=== PATIENT | female | born 1970 | race Caucasian/White ===

== ENCOUNTER 2019-08-05 17:15 | Emergency (ER) | payer OTHER ==
[~2019-08-05] VITALS: Ht 162.6 cm; Wt 71.0 kg
[~2019-08-05 17:15] MED LIST: NO HOME MEDS
[2019-08-05 17:54] LABS: CLARITY,URINE CLOUDY (Clear); COLOR,URINE YELLOW (Yellow); GLUCOSE, URINE NEGATIVE (Neg); KETONES,URINE NEGATIVE (Neg); LEUKOCYTE ESTERASE ,URINE SMALL (Neg); NITRITES, URINE NEGATIVE (Neg); OCCULT BLOOD,URINE MODERATE (Neg); PROTEIN,URINE TRACE mg/dl (Neg)
[2019-08-05 18:01] LABS: UA COLLECTION TYPE CLN CATCH MIDSTREAM
[2019-08-05 18:03] LABS: BACTERIA,URINE 4+ /HPF (Neg); MUCUS STRANDS NONE SEEN /LPF (Neg); SQUAMOUS EPITHELIAL CELL,UR MODERATE /LPF (FEW); WBC CLUMPS,URINE MODERATE /HPF (NEGATIVE); WBC,URINE 50-100 /HPF (0-4)
[2019-08-05] MEDS ORDERED: ondansetron/PF 4mg/2ml inj IV ONE (18:05)
[2019-08-05] MEDS ORDERED: normal saline 1000ML IV soln IVB ONE (18:05)
[2019-08-05] MEDS ORDERED: morphine 4 MG/ML inj SYRINge IV ONE (18:05)
[2019-08-05 18:45] LABS: URINE HCG NEGATIVE (NEG)
[2019-08-05 18:46] LABS: BASOPHILS # (AUTO) 0.1 X10'3 (0-0.2); BASOPHILS % (AUTO) 0.6 % (0-1); EOSINOPHILS # (AUTO) 0.1 X10'3 (0-0.9); EOSINOPHILS % (AUTO) 0.6 % (0-6); HEMATOCRIT 43.5 % (35.0-45.0); HEMOGLOBIN 14.5 g/dl (12.0-16.0); LYMPHOCYTES # (AUTO) 1.3 X10'3 (1.1-4.8); LYMPHOCYTES % (AUTO) 12.8 % (21-51); MEAN CORPUSCULAR HEMOGLOBIN 32.5 PG (27.0-31.0); MEAN CORPUSCULAR HGB CONC 33.4 g/dL (33.0-36.5); MEAN CORPUSCULAR VOLUME 97.2 FL (78-98); MEAN PLATELET VOLUME 8.2 FL (7.4-10.4); MONOCYTES # (AUTO) 0.6 X10'3 (0-0.9); MONOCYTES % (AUTO) 6.4 % (2-12); NEUTROPHILS # (AUTO) 8.1 X10'3 (1.8-7.7); NEUTROPHILS % (AUTO) 79.6 % (42-75); PLATELET COUNT 217 X10'3 (140-440); RED BLOOD COUNT 4.47 X10'6 (4.20-5.60); RED CELL DISTRIBUTION WIDTH 13.1 % (11.5-14.5); WHITE BLOOD COUNT 10.1 X10'3 (4.5-11.0)
[2019-08-05 19:00] LABS: ALANINE AMINOTRANSFERASE 9 U/L (12-78); ALBUMIN 3.2 G/DL (3.4-5.0); ALBUMIN/GLOBULIN RATIO 0.8 (1.1-1.5); ALKALINE PHOSPHATASE 67 IU/L (46-116); ANION GAP 7 (8-16); ASPARTATE AMINO TRANSFERASE 13 U/L (10-37); BILIRUBIN,TOTAL 0.6 MG/DL (0.1-1.0); BLOOD UREA NITROGEN 10 MG/DL (7-18); BUN/CREATININE RATIO 10.6 (6.6-38.0); CALCIUM 9.2 MG/DL (8.5-10.1); CHLORIDE 103 MMOL/L (99-107); CREATININE 0.94 MG/DL (0.40-0.90); GLUCOSE 95 MG/DL (70-104); LIPASE 154 U/L (73-393); POTASSIUM 3.7 MMOL/L (3.5-5.1); SODIUM 141 MMOL/L (135-145); TOTAL CARBON DIOXIDE 31.4 MMOL/L (24-32); eGFR 64 ML/MIN
[2019-08-05] MEDS ORDERED: BACDS PO (19:20)
[2019-08-05] MEDS ORDERED: ONDA4TAB6 PO (19:20)
[2019-08-05] MEDS ORDERED: HYDR-4383 PO (19:20)
[2019-08-05 19:36] VITALS: BP 131/85
== END 2019-08-05 19:38 | disposition home or self-care (01) ==
LOC: ER 17:17
DX: N39.0 Urinary tract infection, site not specified (principal); N20.0 Calculus of kidney; K80.20 Calculus of gallbladder without cholecystitis without obstruction; Z79.899 Other long term (current) drug therapy
CPT/HCPCS: 36415; 74176; 80053; 81001; 81025; 83690; 85025; 87077; 87088; 87186; 96374; 96375; 99284; J2270; J2405; J7030

== ENCOUNTER 2021-05-02 00:27 | Emergency (ER) | payer OTHER ==
[~2021-05-02] VITALS: Ht 162.6 cm; Wt 72.7 kg
[~2021-05-02 00:27] MED LIST changes: +HYDR-4383 PO; +ONDA4TAB6 PO
--- NOTE | 2021-05-02 00:37 | NUR ---
BLOOD SENT TO LAB
--- NOTE | 2021-05-02 00:44 | NUR ---
PATIENT TO CT
[2021-05-02] MEDS ORDERED: niCARDipine-NS 40mg/200ml IVPB 200 ML IV SCH (00:55)
[2021-05-02] MEDS ORDERED: niCARDipine in NS 40mg/200ml (0.2mg/ml) IVPB IV ONE (01:00)
[2021-05-02 01:06] LABS: BASOPHILS # (AUTO) 0.1 X10'3 (0-0.2); BASOPHILS % (AUTO) 1.2 % (0-1); EOSINOPHILS # (AUTO) 0.2 X10'3 (0-0.9); EOSINOPHILS % (AUTO) 2.4 % (0-6); HEMATOCRIT 41.3 % (35.0-45.0); HEMOGLOBIN 14.2 g/dl (12.0-16.0); LYMPHOCYTES # (AUTO) 2.6 X10'3 (1.1-4.8); LYMPHOCYTES % (AUTO) 33.2 % (21-51); MEAN CORPUSCULAR HEMOGLOBIN 33.3 PG (27.0-31.0); MEAN CORPUSCULAR HGB CONC 34.5 g/dL (33.0-36.5); MEAN CORPUSCULAR VOLUME 96.3 FL (78-98); MEAN PLATELET VOLUME 8.6 FL (7.4-10.4); MONOCYTES # (AUTO) 0.5 X10'3 (0-0.9); MONOCYTES % (AUTO) 6.5 % (2-12); NEUTROPHILS # (AUTO) 4.4 X10'3 (1.8-7.7); NEUTROPHILS % (AUTO) 56.7 % (42-75); PLATELET COUNT 220 X10'3 (140-440); RED BLOOD COUNT 4.28 X10'6 (4.20-5.60); WHITE BLOOD COUNT 7.8 X10'3 (4.5-11.0)
--- NOTE | 2021-05-02 01:13 | NUR ---
2ND IV RIGHT WRIST 18G
[2021-05-02 01:14] LABS: APTT 27 SECONDS (22-32); D-DIMER 0.25 MG/L FEU (0-0.50)
--- NOTE | 2021-05-02 01:15 | NUR ---
PATIENT STATES THAT SHE WAS WAS HAVING SEX WITH HER PARTNER AROUND 12AM WHEN SHE BEGIN FEELING 'WEIRD' SHE STARES IT STARTED WITH THE WEAKNESS IN HER RIGHT ARM THEN SHE NOTICED HER LEGS FELT LIKE "JELLY" PATIENT STATES THAT SHE HAS NO CARDIAC HISTORY OR ANY PMH, SHE ADMITS TO HAVING HTN HOWEVER STATED THAT SHE WAS NOT FORMALLY DIAGNOSED. SHE IS A CURRENT DRUG USER (METH) LAST USED 05/01/2021 12PM INITIALY [facility] SCALE WAS 5. SHE WAS STARTED ON NICARDIPINE AT 5MG/HR. SHE HAS 2 18G IV EKG PERFORMED AND RESULTED DR HUMMEL MADE AWARE SHE IS CURRENTLY ON THE PARTS CLERK. NEXT OF KIN BLAZE (MOTHER) [phone]
[2021-05-02 01:17] LABS: ALANINE AMINOTRANSFERASE 17 U/L (12-78); ALBUMIN 3.6 G/DL (3.4-5.0); ALBUMIN/GLOBULIN RATIO 1.2 (1.1-1.5); ALKALINE PHOSPHATASE 62 IU/L (46-116); ANION GAP 9 (8-16); ASPARTATE AMINO TRANSFERASE 14 U/L (10-37); BILIRUBIN,TOTAL 0.4 MG/DL (0.1-1.0); BLOOD UREA NITROGEN 15 MG/DL (7-18); BUN/CREATININE RATIO 19.2 (6.6-38.0); CALCIUM 8.7 MG/DL (8.5-10.1); CHLORIDE 106 MMOL/L (99-107); CREATININE 0.78 MG/DL (0.40-0.90); GLUCOSE 86 MG/DL (70-104); POTASSIUM 3.3 MMOL/L (3.5-5.1); SODIUM 143 MMOL/L (135-145); TOTAL CARBON DIOXIDE 27.9 MMOL/L (24-32); TOTAL PROTEIN 6.6 G/DL (6.4-8.2); eGFR 78 ML/MIN
[2021-05-02 01:20] LABS: C-REACTIVE PROTEIN < 0.05 MG/DL (0.0-0.5); ETHANOL 0.013 GM/DL (0.0-0.010)
[2021-05-02 02:09] VITALS: BP 132/82
--- NOTE | 2021-05-02 02:18 | NUR ---
[facility] HERE TO TRANSFER PT TO [facility]. [facility] ACCOMPANYING PT IN AMBULANCE.
== END 2021-05-02 02:28 | disposition admitted as inpatient to this hospital (09) ==
LOC: ER 00:27
DX: R26.2 Difficulty in walking, not elsewhere classified (principal); Z20.822 Contact with and (suspected) exposure to COVID-19; I62.9 Nontraumatic intracranial hemorrhage, unspecified; F15.10 Other stimulant abuse, uncomplicated; I16.1 Hypertensive emergency; R20.2 Paresthesia of skin; R20.0 Anesthesia of skin; F17.200 Nicotine dependence, unspecified, uncomplicated; Z72.89 Other problems related to lifestyle; Z79.899 Other long term (current) drug therapy
CPT/HCPCS: 36415; 70450; 71045; 80053; 80320; 82948; 84145; 84484; 85025; 85379; 85610; 85730; 86140; 87635; 93005; 96365; 96366; 99291; 99292; 99406; C9803; J3490

== ENCOUNTER 2022-02-04 14:00 | Emergency (ER) | payer OTHER ==
[~2022-02-04] VITALS: Ht 162.6 cm; Wt 70.5 kg
[2022-02-04 15:02] VITALS: BP 136/85
[2022-02-04] MEDS ORDERED: LIDOcaine 1% W/epiNEPHrine 1:200,000 10ml vial IJ ONE (17:15)
[2022-02-04] MEDS ORDERED: LIDOcaine 1% W/epiNEPHrine 1:100,000 20ml vial IJ ONE (17:20)
[2022-02-04] MEDS ORDERED: SULF1TAB45 PO (17:37)
== END 2022-02-04 17:50 | disposition home or self-care (01) ==
LOC: ER 14:00
DX: L02.91 Cutaneous abscess, unspecified (principal); F15.10 Other stimulant abuse, uncomplicated; Z79.899 Other long term (current) drug therapy
CPT/HCPCS: 10060; 99283; A6266; A6212; A6449

== ENCOUNTER 2022-05-21 09:22 | Emergency (ER) | payer OTHER ==
[~2022-05-21] VITALS: Ht 162.6 cm; Wt 68.4 kg
[2022-05-21 09:25] VITALS: BP 148/90
[2022-05-21] MEDS ORDERED: SULF1TAB49 PO (09:47)
== END 2022-05-21 09:59 | disposition home or self-care (01) ==
LOC: ER 09:23
DX: F15.10 Other stimulant abuse, uncomplicated (principal); L03.011 Cellulitis of right finger; Z79.899 Other long term (current) drug therapy
CPT/HCPCS: 73140; 99283

== ENCOUNTER 2022-07-20 16:15 | Emergency (ER) | payer OTHER ==
[~2022-07-20] VITALS: Ht 162.6 cm; Wt 65.9 kg
[2022-07-20 16:24] VITALS: BP 98/67
[2022-07-20] MEDS ORDERED: LIDOcaine 1% 30ml preserv. free vial IJ ONE (18:10)
[2022-07-20] MEDS ORDERED: bacitracin 15gm ointment TP ONE (18:10)
[2022-07-20] MEDS ORDERED: CEPH-585 PO (18:15)
== END 2022-07-20 18:58 | disposition home or self-care (01) ==
LOC: ER 16:16
DX: S01.81XA Laceration without foreign body of other part of head, initial encounter (principal); F15.20 Other stimulant dependence, uncomplicated; W22.8XXA Striking against or struck by other objects, initial encounter; Y93.89 Activity, other specified; Y92.89 Other specified places as the place of occurrence of the external cause; Y99.8 Other external cause status
CPT/HCPCS: 12011; 99283; A6449